=== PATIENT | female | born 1990 | race Caucasian/White ===

== ENCOUNTER 2024-03-31 15:51 | Observation (INO) | payer MEDICAID ==
[2024-03-31] MEDS ORDERED: Sodium Chloride 0.9% 10 ML Syringe FLUSH PRN (16:29)
[2024-03-31 16:36] LABS: BASOPHILS ABSOLUTE AUTO 0.01 K/uL (0.00-0.20); BASOPHILS PERCENT AUTO 0.1 % (0.0-2.0); EOSINOPHILS ABSOLUTE AUTO 0.28 K/uL (0.00-0.50); EOSINOPHILS PERCENT AUTO 2.4 % (0.0-5.0); HEMATOCRIT 33.3 % (34.0-46.0); HEMOGLOBIN 11.1 g/dL (11.7-15.5); LYMPHOCYTES ABSOLUTE AUTO 2.45 K/uL (0.50-3.50); LYMPHOCYTES PERCENT AUTO 20.6 % (10.0-50.0); MEAN CORPUSCULAR HEMOGLOBIN 30.5 pg (28.2-33.3); MEAN CORPUSCULAR HGB CONC 33.3 g/dL (31.7-36.0); MEAN CORPUSCULAR VOLUME 91.5 fL (84.0-98.0); MONOCYTES ABSOLUTE AUTO 1.01 K/uL (0.00-1.00); MONOCYTES PERCENT AUTO 8.5 % (2.0-14.0); NEUTROPHILS ABSOLUTE AUTO 8.13 K/uL (1.40-7.00); NEUTROPHILS PERCENT AUTO 68.4 % (45.0-80.0); PLATELET COUNT,PLT 206 K/uL (150-350); RED BLOOD CELL COUNT 3.64 M/uL (3.77-5.09); RED CELL DISTRIBUTION WIDTH 13.5 % (11.2-14.1); WHITE BLOOD CELL COUNT,WBC 11.9 K/uL (4.0-10.2)
[2024-03-31 16:53] LABS: INR 0.9 (0.9-1.1)
[2024-03-31 17:00] LABS: ALANINE AMINOTRANSFERASE,ALT 13 U/L (12-78); ALBUMIN 2.7 g/dL (3.4-5.0); ALKALINE PHOSPHATASE 68 IU/L (46-116); ANION GAP 11.8 meq/L (7-15); ASPARTATE AMNIOTRANSFERASE,AST 13 U/L (15-37); BILIRUBIN TOTAL 0.1 mg/dL (0.2-1.0); BLOOD UREA NITROGEN,BUN 10 mg/dL (7-18); CALCIUM 8.8 mg/dL (8.5-10.1); CARBON DIOXIDE,CO2 25.6 mmol/L (21.0-32.0); CHLORIDE,CL 105 mmol/L (98-107); CREATININE 0.69 mg/dL (0.51-1.17); ESTIMATED GFR 117 mL/min (>=60); GLUCOSE RANDOM 77 mg/dL (70-99); MAGNESIUM 2.1 mg/dL (1.8-2.4); POTASSIUM,K 3.4 mmol/L (3.5-5.1); PROTEIN TOTAL,TP 6.7 g/dL (6.4-8.2); SODIUM,NA 139 mmol/L (136-145)
[2024-03-31] MEDS: Acetaminophen 325 MG Tab PO PRN (20:25)
[2024-03-31] MEDS: guaiFENesin 600 MG Tab.ER PO PRN (20:26)
[2024-04-01] MEDS: Acetaminophen 325 MG Tab ONE (06:45)
[2024-04-01] MEDS: guaiFENesin 600 MG Tab.ER ONE (06:45)
[2024-04-01 10:51] VITALS: BP 117/74; PULSE 84
== END 2024-04-01 10:50 | disposition home or self-care (01) ==
LOC: LL.ED 15:51 → LL.MS 17:15
PROVIDERS: ADMIT Physician Assistant; ATTEND Physician Assistant
DX: O99.412 Diseases of the circulatory system complicating pregnancy, second trimester (principal); G90.A Postural orthostatic tachycardia syndrome [POTS]; I10 Essential (primary) hypertension; R00.0 Tachycardia, unspecified; Z88.0 Allergy status to penicillin; Z3A.24 24 weeks gestation of pregnancy
CPT/HCPCS: 36415; 80053; 83735; 84484; 85025; 85610; 93005; 93010; 99285; A9270-GY; G0378

== ENCOUNTER 2024-04-12 12:47 | Emergency (ER) | payer MEDICAID ==
[2024-04-12 13:14] LABS: BASOPHILS ABSOLUTE AUTO 0.02 K/uL (0.00-0.20); BASOPHILS PERCENT AUTO 0.1 % (0.0-2.0); EOSINOPHILS PERCENT AUTO 1.5 % (0.0-5.0); HEMATOCRIT 33.9 % (34.0-46.0); HEMOGLOBIN 11.3 g/dL (11.7-15.5); LYMPHOCYTES PERCENT AUTO 21.7 % (10.0-50.0); MEAN CORPUSCULAR HEMOGLOBIN 30.4 pg (28.2-33.3); MEAN CORPUSCULAR HGB CONC 33.3 g/dL (31.7-36.0); MEAN CORPUSCULAR VOLUME 91.1 fL (84.0-98.0); MONOCYTES ABSOLUTE AUTO 0.86 K/uL (0.00-1.00); MONOCYTES PERCENT AUTO 6.4 % (2.0-14.0); NEUTROPHILS PERCENT AUTO 70.3 % (45.0-80.0); PLATELET COUNT,PLT 235 K/uL (150-350); RED BLOOD CELL COUNT 3.72 M/uL (3.77-5.09); RED CELL DISTRIBUTION WIDTH 13.1 % (11.2-14.1); WHITE BLOOD CELL COUNT,WBC 13.4 K/uL (4.0-10.2)
[2024-04-12 13:36] LABS: ALANINE AMINOTRANSFERASE,ALT 19 U/L (12-78); ALBUMIN 2.7 g/dL (3.4-5.0); ALKALINE PHOSPHATASE 67 IU/L (46-116); ANION GAP 11.1 meq/L (7-15); ASPARTATE AMNIOTRANSFERASE,AST 15 U/L (15-37); BILIRUBIN TOTAL 0.3 mg/dL (0.2-1.0); BLOOD UREA NITROGEN,BUN 10 mg/dL (7-18); CALCIUM 8.6 mg/dL (8.5-10.1); CARBON DIOXIDE,CO2 24.9 mmol/L (21.0-32.0); CHLORIDE,CL 105 mmol/L (98-107); CREATININE 0.58 mg/dL (0.51-1.17); EST CRCL DRUG DOSING (CG) 124.14 mL/min; GLUCOSE RANDOM 103 mg/dL (70-99); MAGNESIUM 1.7 mg/dL (1.8-2.4); POTASSIUM,K 3.9 mmol/L (3.5-5.1); PROTEIN TOTAL,TP 6.5 g/dL (6.4-8.2); SODIUM,NA 141 mmol/L (136-145)
[2024-04-12 13:38] LABS: ESTIMATED GFR 122 mL/min (>=60)
[2024-04-12] MEDS: Sodium Chloride 0.9% 10 ML Syringe FLUSH PRN (15:14)
== END 2024-04-12 15:45 | disposition home or self-care (01) ==
LOC: LL.ED 12:47
DX: I47.19 Other supraventricular tachycardia (principal); G90.A Postural orthostatic tachycardia syndrome [POTS]; R00.2 Palpitations; E83.42 Hypomagnesemia; Z88.0 Allergy status to penicillin
CPT/HCPCS: 36415; 80053; 83735; 84443; 84484; 85025; 93005; 96365; 99285; J3475; 93010; 99284; J3490